=== PATIENT | male | born 1960 | race Two or more races ===

== ENCOUNTER 2025-01-12 09:43 | Outpatient (RCR) | payer MEDICAID, SELFPAY ==
--- NOTE | 2024-12-16 11:48 | CTCTXPLNST_ITS ---
Radiation Oncology Treatment Planning Sheet Name: HAN SWARTZ MR#: [id number] : 1960 Dx: C79.31 Secondary malignant neoplasm of brain Date of Service: 12/16/2024 Account #: ?? Pt Treatment Intent: curative palliative other: Stage: Procedure CPT # Ordered Spec. Procedure 95504 1 Johnson Complex (set-up) 39946 Brain 1 Johnson Simple 54114 1 IMRT Plan 61703 MLC Devices VMAT 27338 Johnson 3 D 05667 1 TRTMT dev Complex 01881 Aqua Plast /2 malone 3 TRTMT dev simple 72362 Basic Sixto 89580 2 Special Dosimetry 94484 Spec Physics 14922 Port Films 14335 2 SRS Cranial/1FX 19649 SBR 5 FX or Less /ex: 5 = 5 fx 81812 IMRT Simple 13787 IMRT Complex 38210 IGRT 88988 Rad del com 6-10 31533 3000 10 Rad del com 11- 06330 Cont Med Physics 44162 2 Treatment Planning 99574 1 Rad del com 20 mev 21130 Rad del inter 6 15016 Rad del inter 08-04 85203 Rad del simple 6-10 21391 Rad del simple 11 74633 Special Port Plan 84134 TRTMT dev inter 18891 Isodose Complex 06488 Isodose simple 62674 Resp Motion Mgmt Simulation 75847 Placement of Fiducial Markers 78467 Electronically Signed By: Andrews Nicolas MD, DABR 12/16/2024 11:46 AM
--- NOTE | 2024-12-16 11:48 | CTCTXPLN_ITS ---
[facility] [address] [place], [place] [address] Physician Clinical Treatment Planning Note Date of Service: 12/16/2024 Name: HAN SWARTZ : 1960 The patient has agreed to proceed with Radiation therapy. Tests and supporting medical records were interpreted to assist in defining the tumor location and extent of disease. Further imaging will be necessary to contour and delineate the volume to which the XRT will be provided. A. Treatment Intent: Palliative B. Modality: 6 MV C. Requested Technique: 3D D. Treatment Site: Brain E. Critical structures to be contoured on plan: F. In order to accomplish this plan, I am ordering/Prescribing the followin. Simulations (s) will be performed to accomplish a reproducible treatment position, to determine optimal treatment portals/beam arrangements, to design beam modifying devices and verify treatment portals on patient prior to the commencement of Radiation Therapy. Brain 2. Devices; for immobilization and beam shaping: Aquaplast 3. CT Guidance for placement of XRT malone Scan area: 4. Portal images Frequency: 5. Invivo transit dose measurement once per week on all VMAT patients. 6. Special Physics Consult Requested for: 7. Other requests: Special procedure someone getting chemo and radiation G. Dose Objectives: Palliative Electronically signed by: Andrews Nicolas M.D. 12/16/2024 11:45 AM
--- NOTE | 2024-12-16 11:48 | CTCCONSULT_ITS ---
[facility] [address] [place], [place] [address] Consultation Note Date: 12/16/2024 MR#: [id number] Name: HAN SWARTZ : 1960 Dx: C79.31 Secondary malignant neoplasm of brain Referring physician. Gordy Kaminski MD Reason consultation. Patient with metastatic CA to the brain referred for palliative radiation therapy. History of Present Illness: Patient is a 64-year-old gentleman with non-small cell lung CA. CT scan 08/15/2024 revealed 5.8 cm spiculated mass right upper lobe which invaded the right hilum as with pathologic enlarged lymph nodes osseous lesions. Patient had bronch biopsy 10/15/2024 in [place] revealing non-small cell CA the lung right upper lobe endobronchial biopsy. According to comment findings suggestive of adenocarcinoma. 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 Targeted therapy being planned. PET scan 10/12/2024 revealed large right lower lobe posterior perihilar irregular hypermetabolic lung mass measuring up to 5.4 cm compatible with bronchogenic carcinoma, multiple bilateral hypermetabolic pulmonary nodules seen right greater than left compatible with bilateral pulmonary mets. There were also bony lesions involving sternum left lateral rib T8 T10 L1 and L2 vertebral bodies right posterior acetabulum. MRI of the brain 11/24/2024 revealed 3 foci of gadolinium enhancement right and left frontal cortices with largest area ring-enhancing and measuring 11 mm in size. Patient now referred for palliative radiation therapy. Past Medical History: High blood pressure ulcer asthma Meds. Xalkori lisinopril lorazepam albuterol Rosuvastin stain propranolol Allergies B12 injection Social History: Patient with disabled has daughter who helps care for patient who lives in [place]. Denies smoking drinking has history of depression Review of Systems: Has experienced anxiety change in vision chest pain cough coughing up blood difficulty hearing heartburn nausea nocturia recent back pain sleep problem. Physical Exam: Adequately nourished appearing gentleman in no acute distress General: HEENT: Atraumatic normocephalic extraocular is intact no oral lesions no cervical or supraclavicular adenopathy CV: Chest clear to auscultation heart regular rate and rhythm ABD: Soft no organomegaly or tenderness EXT: No signs of clubbing edema Assessment: 1. 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 2. Will treat the frontal area using 3D technique 3000 cGy over 10 fractions. 3. Patient is seeing Dr. 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 4. Thank you very much for allowing me to evaluate and manage this patient Cc: Chance Kaminski MD [facility] Electronically signed by: Andrews Nicolas MD, DABR 12/16/2024 11:45 AM
== END 2025-01-13 23:59 | disposition home or self-care (01) ==
LOC: SCTC 09:43
PROVIDERS: PCP Physician Assistant; Referring Provider Radiology Therapeutic Radiology; Visit Provider Radiology Therapeutic Radiology
DX: Z51.0 Encounter for antineoplastic radiation therapy (principal); C34.11 Malignant neoplasm of upper lobe, right bronchus or lung; C79.51 Secondary malignant neoplasm of bone; C79.31 Secondary malignant neoplasm of brain
CPT/HCPCS: 77014; 77280; 77290; 77295; 77300; 77334; 77336; 77412; 77417; 99213; 99424; 99425; G0463

== ENCOUNTER 2025-01-26 09:37 | Outpatient (RCR) | payer MEDICARE, MEDICAID, SELFPAY ==
--- NOTE | 2025-01-26 10:36 | CTCTSUMM_ITS ---
[facility] [address] [place], [place] [address] Treatment Summary Date: 01/26/2025 MR#: [id number] Name: HAN SWARTZ : 1960 Dx: C79.31 Referring Physician: Chance Kaminski MD (A) Diagnosis: [ICD10] C79.31 Secondary malignant neoplasm of brain (B) Aim of Treatment: ?? (C) Concomitant Chemotherapy: Sequential (D) Radiation Dates: 12/30/2024 through 01/12/2025 Treatment Prescription frontal brain 2 FLD 6 MV PHOT 3,000 cGy 10 300 cGy Approved (E) All malone were treated using customized MLC Blocks (F) Finding at Discharge: Patient seen for first follow-up on 01/26/2025. Patient had minor skin effects of the scalp area otherwise had no other difficulties. (G) Discharge Instructions and F/U Appt was given: The patient was also advised to continue follow-up with Dr. Kaminski and primary care physician: AMANDA Kaminski MD: Electronically signed by: Andrews Nicolas MD, DABR 01/26/2025 10:34 AM
== END 2025-02-13 23:59 | disposition home or self-care (01) ==
LOC: SCTC 09:37
PROVIDERS: PCP Physician Assistant; Referring Provider Physician Assistant; Visit Provider Radiology Therapeutic Radiology
DX: C79.31 Secondary malignant neoplasm of brain (principal); Z92.3 Personal history of irradiation
CPT/HCPCS: 99213; G0463